=== PATIENT | female | born 1960 | race Caucasian/White ===

== ENCOUNTER → 2019-01-01 | Outpatient (CLI) | payer OTHER ==
--- NOTE | 2019-01-01 10:51 | CT ---
EXAMINATION TYPE: CT brain mckay redd con DATE OF EXAM: 01/01/2019 COMPARISON: None HISTORY: Fall with blow to back of head. Headache and neck pain post fall. CT DLP: 1094.2 mGycm, Automated exposure control for dose reduction was used. CONTRAST: Patient injected with 0 mL of Isovue 300. CT of the brain is performed utilizing 3 mm thick sections through the posterior fossa and 3 mm thick sections through the remaining calvarium. Study is performed within 24 hours of arrival to the hospital. No abnormal hyperdensity is present to suggest an acute intracranial hemorrhage. No mass lesion is evident. No acute infarcts are evident. Ventricles and sulci are appropriate for the patient age. Paranasal sinuses and mastoid air cells within the [id number] are clear. IMPRESSIONS: 1. Normal CT brain. CT cervical spine. COMPARISON: None CT of the cervical spine is performed in the axial plane at 2 mm thick sections. Reconstructed image s in the coronal, and sagittal plane are reviewed on the computer. No acute fractures are evident. There may be some straightening of the cervical spine in the sagittal plane. There may be some attempted fusion of C4-5. Some mild narrowing of the C5-6 and possibly posterior C6 -7 disc space is present. Remaining Disc heights are preserved. Vertebral body heights are preserved. No spinal canal stenosis is evident. Uncovertebral joint hypertrophy C5-6 is moderate bilateral foraminal stenosis. Moderate to severe william ateral foraminal stenosis present C6-7. Lung apices within the [id number] are clear. IMPRESSIONS: 1. Lower cervical spine foraminal stenosis. 2. Mid to lower cervical spine degenerative disc changes
== END | disposition home or self-care (01) ==
LOC: RADCTMAIN 10:11
PROVIDERS: ATTEND Emergency Medicine
DX: M48.02 Spinal stenosis, cervical region (principal); M50.30 Other cervical disc degeneration, unspecified cervical region; S13.4XXA Sprain of ligaments of cervical spine, initial encounter; S00.03XA Contusion of scalp, initial encounter
CPT/HCPCS: 70450; 72125

== ENCOUNTER 2022-02-16 09:57 | Day surgery (SDC) | payer BC, OTHER ==
[2022-02-14 10:42] VITALS: BMI 21.9
[~2022-02-16 09:57] MED LIST: LACTATED RINGERS 1,000 ML IV SCH
[2022-02-16 10:23] VITALS: RESP 16; TEMP 98.9
[2022-02-16] MEDS ORDERED: PROPOFOL 10 MG/ML 20 ML VIAL IV ONE (11:25)
--- NOTE | 2022-02-16 11:26 | P.GSHP ---
History of Present Illness H&P Date: 02/16/22 Chief Complaint: GI bleed Is a 8-year-old female presents today for colonoscopy. Patient issues with rectal bleeding. Past Medical History Past Medical History: Hyperlipidemia, Hypertension, Osteoarthritis (OA) History of Any Multi-Drug Resistant Organisms: None Reported Past Surgical History: Section Additional Past Surgical History / Comment(s): COLONOSCOPY. Past Anesthesia/Blood Transfusion Reactions: No Reported Reaction Past Psychological History: No Psychological Hx Reported Smoking Status: Never smoker Past Alcohol Use History: Daily Additional Past Alcohol Use History / Comment(s): 1-2 drinks most days. Past Drug Use History: None Reported - Past Family History Mother Family Medical History: Cancer Additional Family Medical History / Comment(s): Varicose veins. Medications and Allergies Home Medications Medication Instructions Recorded Confirmed Type hydroCHLOROthiazide [Hydrodiuril] 50 mg PO DAILY 10/15/15 02/16/22 History Docusate [Colace] 100 - 200 mg PO DAILY 02/14/22 02/16/22 History Psyllium Husk [Metamucil] 0.4 - 0.8 gm PO DAILY 02/14/22 02/16/22 History Allergies Allergy/AdvReac Type Severity Reaction Status Date / Time No Known Allergies Allergy Verified 02/16/22 10:23 Surgical - Exam Vital Signs Temp Pulse Resp BP Pulse Ox 98.9 F 95 16 159/89 98 02/16/22 10:22 02/16/22 10:22 02/16/22 10:22 02/16/22 10:22 02/16/22 10:22 - General well developed, well nourished, no distress - Eyes PERRL - ENT normal pinna - Neck no masses - Respiratory normal expansion - Cardiovascular Rhythm: regular - Abdomen Abdomen: soft, non tender Assessment and Plan Assessment: GI bleed. We'll perform colonoscopy.
--- NOTE | 2022-02-16 11:44 | P.OP ---
Date of Procedure: 02/16/22 Preoperative Diagnosis: GI bleed Postoperative Diagnosis: Severe diverticulosis External hemorrhoids No evidence of any active GI bleed Procedure(s) Performed: Colonoscopy Anesthesia: MAC Surgeon: Delvis Morales Pathology: none sent Condition: stable Disposition: PACU Description of Procedure: The patient's placed on the endoscopy table in the lateral position. She received IV sedation. Digital rectal exam was performed. There was extensive external hemorrhoids. The flexible colonoscope was then placed patient anus and passed throughout the entire colon. Ileocecal valve was visualized. The cecum, ascending and transverse colon appeared normal. In the descending and sigmoid colon there is extensive diverticular changes. The bowel was quite tortuous. Scope was withdrawn and the rectum and this appeared normal. Scope withdrawn for patient. There is known to any active GI bleed. The patient may have bleeding from hemorrhoids or diverticula
[2022-02-16 12:01] VITALS: BP 157/88; PULSE 70
== END 2022-02-16 12:23 | disposition home or self-care (01) ==
LOC: ORWHC2ENDO 09:57
PROVIDERS: ATTEND Surgery
DX: K57.31 Diverticulosis of large intestine without perforation or abscess with bleeding (principal); K64.4 Residual hemorrhoidal skin tags; E78.5 Hyperlipidemia, unspecified; I10 Essential (primary) hypertension; M19.90 Unspecified osteoarthritis, unspecified site; Z79.899 Other long term (current) drug therapy; Z98.891 History of uterine scar from previous surgery; Z80.9 Family history of malignant neoplasm, unspecified
CPT/HCPCS: 45378; J2704

== ENCOUNTER 2022-08-09 10:06 | Day surgery (SDC) | payer BC ==
[2022-08-08 09:23] VITALS: BMI 21.9
--- NOTE | 2022-08-09 10:04 | P.GSHP ---
History of Present Illness H&P Date: 08/09/22 Chief Complaint: Internal and external hemorrhoids This is a 8-year-old female who's had complaints of anal pain, bleeding and itching. Patient presents today for hemorrhoidectomy Past Medical History Past Medical History: Hyperlipidemia, Hypertension, Osteoarthritis (OA) Additional Past Medical History / Comment(s): hemorrhoids History of Any Multi-Drug Resistant Organisms: None Reported Past Surgical History: Section Additional Past Surgical History / Comment(s): COLONOSCOPY Past Anesthesia/Blood Transfusion Reactions: No Reported Reaction Smoking Status: Never smoker - Past Family History Mother Family Medical History: Cancer Additional Family Medical History / Comment(s): colon Medications and Allergies Home Medications Medication Instructions Recorded Confirmed Type hydroCHLOROthiazide [Hydrodiuril] 50 mg PO DAILY 10/15/15 08/08/22 History Benifiber 1 applicate PO BID 08/08/22 08/08/22 History Allergies Allergy/AdvReac Type Severity Reaction Status Date / Time No Known Allergies Allergy Verified 08/08/22 09:15 Surgical - Exam - General well developed, well nourished, no distress - Eyes PERRL - ENT normal pinna - Neck no masses - Respiratory normal expansion - Cardiovascular Rhythm: regular - Abdomen Abdomen: soft, non tender - Rectum Internal and external hemorrhoids Assessment and Plan Assessment: Internal/hemorrhoids. We'll perform hemorrhoidectomy.
[~2022-08-09 10:06] MED LIST changes: +ACETAMINOPHEN TAB 500 MG TAB PO PRN; +DEXAMETHASONE SOD PHOSPHATE 4 MG/ML 1 ML VIAL IV ONE; +HEPARIN SODIUM,PORCINE/PF 5,000 UNIT/0.5 ML SYRINGE SQ PRN; +HYDROmorphone 0.5 MG/0.5 ML SYRINGE IVP PRN; +LIDOCAINE 1% (10MG/ML) FOR IV START INTRADERMA PRN; +MIDAZOLAM 2 MG/2 ML VIAL IV PRN; +ONDANSETRON 4 MG/2 ML VIAL IVP ONE; +Pre Op ABX Message 1 EACH MISC MISCELLANE ONE
[2022-08-09 10:54] VITALS: RESP 16
[2022-08-09] MEDS ORDERED: MIDAZOLAM 2 MG/2 ML VIAL ONE (11:07)
[2022-08-09] MEDS ORDERED: PROPOFOL 10 MG/ML 20 ML VIAL IV ONE (11:07)
[2022-08-09] MEDS ORDERED: fentaNYL (PF) 50 MCG/ML 2 ML AMP ONE (11:07)
[2022-08-09] MEDS ORDERED: BUPIVACAINE (PF) 0.25% 30 ML VIAL SQ ONE ×2 (11:27→11:29)
[2022-08-09] MEDS ORDERED: GELATIN SPONGE,ABSORB (LARGE) 1 EACH SPONGE TOPICAL ONE (11:36)
--- NOTE | 2022-08-09 11:40 | P.OP ---
Date of Procedure: 08/09/22 Preoperative Diagnosis: Internal and external hemorrhoids Postoperative Diagnosis: Internal and external hemorrhoids Procedure(s) Performed: Hemorrhoidectomy Anesthesia: MAC, spinal Surgeon: Delvis Morales Estimated Blood Loss (ml): 5 Pathology: other (Hemorrhoids) Condition: stable Disposition: PACU Description of Procedure: Patient's placed on the operative table in the prone jackknife position after receiving spinal anesthetic and IV sedation. Her anus was prepped and draped usual fashion. The patient had large internal/external hemorrhoids. The anal retractors placed anus. And then the right anterior hemorrhoid column was grasped with a pair of Allis clamps and then removed using the Harmonic scissors. The left lateral hemorrhoidal column was removed in identical fashion on the right posterior hemorrhoid column was removed in identical fashion. The was retrieved cyst. There is no bleeding seen. The anus was anesthetized 1% local Xylocaine. Patient top she will was sent to recovery room in stable condition.
[2022-08-09 11:48] VITALS: TEMP 97
[2022-08-09 12:38] VITALS: BP 152/79; PULSE 69
== END 2022-08-09 13:00 | disposition home or self-care (01) ==
LOC: OR 10:06
PROVIDERS: ATTEND Surgery
DX: K64.8 Other hemorrhoids (principal); K64.4 Residual hemorrhoidal skin tags; E78.5 Hyperlipidemia, unspecified; I10 Essential (primary) hypertension; M19.90 Unspecified osteoarthritis, unspecified site; Z98.891 History of uterine scar from previous surgery; Z98.890 Other specified postprocedural states; Z80.0 Family history of malignant neoplasm of digestive organs; Z79.899 Other long term (current) drug therapy
CPT/HCPCS: 46260; J2250; J1100; J2405; J3010; J2704; J1644; 88304